=== PATIENT | male | born 1990 | race Caucasian/White ===

== ENCOUNTER 2016-10-21 17:09 | Emergency (ER) | payer OTHER ==
[~2016-10-21] VITALS: Ht 185.4 cm; Wt 111.7 kg
[2016-10-21 17:09] VITALS: BP 156/80
[2016-10-21] MEDS ORDERED: LIDOCAINE 2% MDV 20 ML VIAL SC ONE (18:00)
[2016-10-21] MEDS ORDERED: ADACEL/BOOSTRIX VACCINE (DIPHTH/PERTUSS/ACELL/TETANUS)0.5ML SYR (90715) IM ONE (18:00)
[2016-10-21] MEDS ORDERED: KEFL500C17 PO (18:17)
== END 2016-10-21 18:26 | disposition home or self-care (01) ==
LOC: M ED 17:53
DX: S61.412A Laceration without foreign body of left hand, initial encounter (principal); W45.8XXA Other foreign body or object entering through skin, initial encounter; Y92.019 Unspecified place in single-family (private) house as the place of occurrence of the external cause; Y93.G1 Activity, food preparation and clean up; Y99.8 Other external cause status; Z88.1 Allergy status to other antibiotic agents; Z88.8 Allergy status to other drugs, medicaments and biological substances

== ENCOUNTER 2016-10-28 09:53 | Emergency (ER) | payer OTHER ==
[~2016-10-28] VITALS: Ht 185.4 cm; Wt 110.7 kg
[2016-10-28 09:53] VITALS: BP 149/66
[~2016-10-28 09:53] MED LIST: KEFL500C17 PO
== END 2016-10-28 10:28 | disposition home or self-care (01) ==
LOC: M ED 10:25
DX: Z48.02 Encounter for removal of sutures (principal); Z88.0 Allergy status to penicillin

== ENCOUNTER 2017-10-26 14:23 | Emergency (ER) | payer OTHER, BC | END 2017-10-26 15:22 | disposition home or self-care (01) | LOC: M ED 14:23 | DX: S90.32XA Contusion of left foot, initial encounter (principal); W23.0XXA Caught, crushed, jammed, or pinched between moving objects, initial encounter; Y92.9 Unspecified place or not applicable; Y93.9 Activity, unspecified; Y99.0 Civilian activity done for income or pay; M77.52 Other enthesopathy of left foot and ankle; Z88.0 Allergy status to penicillin | CPT/HCPCS: 73630 ==

== ENCOUNTER → 2019-07-07 | Outpatient (REF) | payer OTHER ==
[~2019-07-07] MED LIST changes: +HYDR-3715 PO
== END ==
LOC: M LAB REF 19:53
PROVIDERS: ATTEND Physician Assistant
DX: J02.9 Acute pharyngitis, unspecified (principal)

== ENCOUNTER → 2019-07-10 | Outpatient (CLI) | payer OTHER ==
--- NOTE | 2019-07-10 11:02 | REP ---
CHEST, TWO VIEWS: There is no evidence of acute infiltrate. No pleural effusion is seen. The heart is normal in size. The mediastinal silhouette is unremarkable. The visualized osseous structures are intact. IMPRESSION: No acute pulmonary disease. Electronically Signed by Fran Campoverde MD 07/10/2019 07:45 P
== END ==
LOC: M WUC 09:05
PROVIDERS: ATTEND Physician Assistant
DX: R05 Cough (principal); J11.1 Influenza due to unidentified influenza virus with other respiratory manifestations

== ENCOUNTER 2020-06-30 10:26 | Emergency (ER) | payer OTHER ==
[~2020-06-30] VITALS: Ht 185.4 cm; Wt 128.6 kg
--- OUTSIDE RECORDS SUMMARY | 2020-06-30 10:32 | CCD | Continuity of Care Document ---
Author Author Yeyo BACH Organization Unknown Address [address] [place] [address] [place] [address] Phone [phone] Care Team Providers Care Blood Bank Manager Name Role Phone Will Co Publi AUTM [phone] Problems Description No Information Available Social History Type Date Description Comments Sex Unknown ETOH Use Occasionally consumes alcohol Tobacco Use Start: Unknown The patient has never vaped Tobacco Use Start: Unknown Patient has never smoked Smoking Status Reviewed: 05/11/20 Patient has never smoked Allergies, Adverse Reactions, Alerts Active Allergies Reaction Severity Comments Date Augmentin 07/07/2019 Medications Description No Active Medications Immunizations Description No Information Available Vital Signs Date Vital Result Comment 05/11/2020 11:36am BP Systolic 162 mmHg BP Diastolic 72 mmHg Heart Rate 104 /min O2 % BldC Oximetry 96 % Body Temperature 99.3 F Weight 270.00 lb Pain Level 7 07/10/2019 8:40am BP Systolic 144 mmHg BP Diastolic 84 mmHg Heart Rate 115 /min Respiratory Rate 18 /min O2 % BldC Oximetry 98 % Body Temperature 98.9 F Weight 270.00 lb Height 73 inches 6'1" BMI (Body Mass Index) 35.6 kg/m2 Pain Level 7 Results Description No Information Available Procedures Description No Information Available Medical Devices Description No Information Available Encounters Type Date Location Provider Dx Diagnosis Office Visit 05/11/2020 11:30a Main Office JOSE FRANCISCO Kasper J06 .9 Acute upper respiratory infection, unspecified Z20.828 Contact w and exposure to ot h viral communicable diseases Assessments Date Code Description Provider 05/11/2020 J06.9 Acute upper respiratory infectio n, unspecified JOSE FRANCISCO Kasper 05/11/2020 Z20.828 Contact with and (cadena spected) exposure to other viral communicable diseases JOSE FRANCISCO Kasper Plan of Treatment No Information Available Functional Status Description No Information Available Mental Status Description No Information Available Referrals Description No Information Available
--- OUTSIDE RECORDS SUMMARY | 2020-06-30 10:32 | CCD | Continuity of Care Document ---
Author Author Yeyo BACH Organization Unknown Address [address] [place] [address] [place] [address] Phone [phone] Care Team Providers Care Agronomy Technician Name Role Phone Will Co Publi AUTM [phone] Problems Description No Information Available Social History [...]
--- OUTSIDE RECORDS SUMMARY | 2020-06-30 10:32 | CCD | Continuity of Care Document ---
Author Author Yeyo QUEEN Organization Unknown Address [address] [place] [address] [place] [address] Phone [phone] Care Team Providers Care Damage Adjuster Name Role Phone Will Co Publi AUTM [phone] Problems Description No Information Available Social History Type Date Description Comments Sex Unknown ETOH Use Occasionally consumes alcohol Tobacco Use Start: Unknown The patient has never vaped Tobacco Use Start: Unknown Patient has never smoked Smoking Status Reviewed: 06/17/20 Patient has never smoked Allergies, Adverse Reactions, Alerts Active Allergies Reaction Severity Comments Date Augmentin 07/07/2019 Medications Description No Active Medications Immunizations Description No Information Available Vital Signs Date Vital Result Comment 06/17/2020 11:08am BP Systolic 138 mmHg BP Diastolic 88 mmHg Heart Rate 76 /min Respiratory Rate 20 /min O2 % BldC Oximetry 98 % Body Temperature 98.2 F Weight 270.00 lb Height 73 inches 6'1" BMI (Body Mass Index) 35.6 kg/m2 Pain Level 8 05/11/2020 11:36am BP Systolic 162 mmHg BP Diastolic 72 mmHg Heart Rate 104 /min O2 % BldC Oximetry 96 % Body Temperature 99.3 F Weight 270.00 lb Pain Level 7 Results Description No Information Available Procedures Description No Information Available Medical Devices Description No Information Available Encounters Type Date Location Provider Dx Diagnosis Office Visit 06/17/2020 11:00a Main Office JOSE FRANCISCO Kramer J06.9 Acute upper respiratory infection, unspecified Z20.828 Contact w and exposure to ot h viral communicable diseases Office Visit 05/11/2020 11:30a Main Office JOSE FRANCISCO Kasper J06 .9 Acute upper respiratory infection, unspecified Z20.828 Contact w and exposure to ot h viral communicable diseases Assessments Date Code Description Provider 06/17/2020 J06.9 Acute upper respiratory infectio n, unspecified JOSE FRANCISCO Kramer 06/17/2020 Z20.828 Contact with and (cadena spected) exposure to other viral communicable diseases JOSE FRANCISCO Kramer 05/11/2020 J06.9 Acute upper respiratory infectio n, unspecified JOSE FRANCISCO Kasper 05/11/2020 Z20.828 Contact with and (cadena spected) exposure to other viral communicable diseases JOSE FRANCISCO Kasper Plan of Treatment No Information Available Functional Status Description No Information Available Mental Status Description No Information Available Referrals Description No Information Available
--- OUTSIDE RECORDS SUMMARY | 2020-06-30 10:32 | CCD | Continuity of Care Document ---
Author Author Yeyo QUEEN Organization Unknown Address [address] [place] [address] [place] [address] Phone [phone] Care Team Providers Care Youth Advocate Name Role Phone Will Co Publi AUTM [phone] Problems Description No Information Available Social History [...]
--- OUTSIDE RECORDS SUMMARY | 2020-06-30 10:33 | CCD ---
Author Author [facility] Organization [facility] Address Unknown Phone Unavailable Care Team Providers Care Upper Cutter Out Name Role Phone ANTONIOJUDI GRIFFITH PA Unavailable Unavailable ANTONIO, JUDI PA Unavailable Unavailable ANTONIO, JUDI PA Unavailable Unavailable ANTONIO, JUDI PA Unavailable Unavailable ATNONIO, JUDI PA Unavailable Unavailable ANTONIO, JUDI PA Unavailable Unavailable ANTONIO, JUDI PA Unavailable Unavailable ANTONIO, JUDI PA Unavailable Unavailable ANTONIO, JUDI PA Unavailable Unavailable ANTONIO, JUDI PA Unavailable Unavailable ANTONIO, JUDI PA Unavailable Unavailable ANTONIO, JUDI PA Unavailable Unavailable ANTONIO, JUDI PA Unavailable Unavailable ANTONIO, JUDI PA Unavailable Unavailable ANTONIO, JUDI PA Unavailable Unavailable ANTONIO, JUDI PA Unavailable Unavailable ANTONIO, JUDI PA Unavailable Unavailable ANTONIO, JUDI PA Unavailable Unavailable ANTONIO, JUDI PA Unavailable Unavailable ANTONIO, JUDI PA Unavailable Unavailable ANTONIO, JUDI PA Unavailable Unavailable ANTONIO, JUDI PA Unavailable Unavailable ANTONIO, JUDI PA Unavailable Unavailable ANTONIO, JUDI PA Unavailable Unavailable ANTONIO, JUDI PA Unavailable Unavailable ANTONIO, JUDI PA Unavailable Unavailable ANTONIO, JUDI PA Unavailable Unavailable ANTONIO, JUDI PA Unavailable Unavailable ANTONIO, JUDI PA Unavailable Unavailable ANTONIO, JUDI PA Unavailable Unavailable ANTONIO, JUDI PA Unavailable Unavailable ANTONIO, JUDI PA Unavailable Unavailable ANTONIO, JUDI PA Unavailable Unavailable ANTONIO, JUDI PA Unavailable Unavailable ANTONIO, JUDI PA Unavailable Unavailable ANTONIO, JUDI PA Unavailable Unavailable ANTONIO, JUDI PA Unavailable Unavailable ANTONIO, JUDI PA Unavailable Unavailable ANTONIO, JUDI PA Unavailable Unavailable RING, K YOLI PA Unavailable Unavailable RING, K YOLI PA Unavailable Unavailable RING, K YOLI PA Unavailable Unavailable RING, K YOLI PA Unavailable Unavailable RING, K YOLI PA Unavailable Unavailable RING, K YOLI PA Unavailable Unavailable RING, K YOLI PA Unavailable Unavailable RING, K YOLI PA Unavailable Unavailable RING, K YOLI PA Unavailable Unavailable RING, K YOLI PA Unavailable Unavailable RING, K YOLI PA Unavailable Unavailable RING, K YOLI PA Unavailable Unavailable RING, K YOLI PA Unavailable Unavailable RING, K YOLI PA Unavailable Unavailable RING, K YOLI PA Unavailable Unavailable RING, K YOLI PA Unavailable Unavailable RING, K YOLI PA Unavailable Unavailable RING, K YOLI PA Unavailable Unavailable RING, K YOLI PA Unavailable Unavailable RING, K YOLI PA Unavailable Unavailable RING, K YOLI PA Unavailable Unavailable LETTIERE, A JEB PA Unavailable Unavailable LETTIERE, A JEB PA Unavailable Unavailable LETTIERE, A JEB PA Unavailable Unavailable LETTIERE, A JEB PA Unavailable Unavailable LETTIERE, A JEB PA Unavailable Unavailable LETTIERE, A JEB PA Unavailable Unavailable LETTIERE, A JEB PA Unavailable Unavailable LETTIERE, A JEB PA Unavailable Unavailable LETTIERE, A JEB PA Unavailable Unavailable LETTIERE, A JEB PA Unavailable Unavailable LETTIERE, A JEB PA Unavailable Unavailable LETTIERE, A JEB PA Unavailable Unavailable LETTIERE, A JEB PA Unavailable Unavailable LETTIERE, A JEB PA Unavailable Unavailable LETTIERE, A JEB PA Unavailable Unavailable LETTIERE, A JEB PA Unavailable Unavailable LETTIERE, A JEB PA Unavailable Unavailable LETTIERE, A JEB PA Unavailable Unavailable LETTIERE, A JEB PA Unavailable Unavailable LETTIERE, A JEB PA Unavailable Unavailable LETTIERE, A JEB PA Unavailable Unavailable LETTIERE, A JEB PA Unavailable Unavailable LETTIERE, A JEB PA Unavailable Unavailable LETTIERE, A JEB PA Unavailable Unavailable LETTIERE, A JEB PA Unavailable Unavailable LETTIERE, A JEB PA Unavailable Unavailable LETTIERE, A JEB PA Unavailable Unavailable LETTIERE, A JEB PA Unavailable Unavailable LETTIERE, A JEB PA Unavailable Unavailable Re-disclosure Warning The records that you are about to access may contain information from federally-assisted alcohol or drug abuse programs. If such information is present, then the following federally mandated warning applies: This information has been disclosed to you from records protected by federal confidentiality rules (42 CFR part 2). The federal rules prohibit you from making any further disclosure of this information unless further disclosure is expressly permitted by the written consent of the person to whom it pertains or as otherwise permitted by 42 CFR part 2. A general authorization for the release of medical or other information is NOT sufficient for this purpose. The Federal rules restrict any use of the information to criminally investigate or prosecute any alcohol or drug abuse patient.The records that you are about to access may contain highly sensitive health information, the redisclosure of which is protected by Article 27-F of the [facility] Public Health law. If you continue you may have access to information: Regarding HIV / AIDS; Provided by facilities licensed or operated by the [facility] Office of Mental Health; or Provided by the [facility] Office for People With Developmental Disabilities. If such information is present, then the following [facility] mandated warning applies: This information has been disclosed to you from confidential records which are protected by state law. State law prohibits you from making any further disclosure of this information without the specific written consent of the person to whom it pertains, or as otherwise permitted by law. Any unauthorized further disclosure in violation of state law may result in a fine or care home sentence or both. A general authorization for the release of medical or other information is NOT sufficient authorization for further disc losure. Encounters Encounter Providers Location Date Indications Data Source(s ) Outpatient Attender: YOLI Sandoval Primary 06/17/2020 10:00:00 AM EST [facility] ([facility], [facility]) Outpatient Attender: JEB Sandoval Prim vikki 05/11/2020 10:30:00 AM EST [facility] ([facility], [facility]) Outpatient 07/14/2019 01:20:00 PM EDT [facility] Outpatient Attender: JUDI Felipe ry 07/10/2019 07:15:00 AM EST [facility] ([facility], [facility]) Outpatient Attender: JUDI Felipe ry 07/07/2019 03:10:00 PM EST [facility] ([facility], [facility]) Insurance Providers Payer name Policy type / Coverage type Policy ID Covered green party ID Covered green party's relationship to triana Policy Tri[place] Plan Information REPLACED BY [facility] [id number] SP [id number] [facility]) O [id number] S [id number] [employer] O [id number] O 1 [id number] [employer] B [id number] S YNS [id number] [employer] [id number] SP [id number] [employer] [place] PPO 302/307 [id number] SP [id number] OTHER W.C.EMPLOYER O [id number] O [id number] [facility] [id number] SP [id number] [employer] [place] PPO 302/307 [id number] SP [id number] [facility] [facility] [place] [id number] MO2 [id number] [employer] [facility] [id number] MO2 [id number] [facility] [id number] MO2 [id number] Results ID Date Data Source [id number] 06/17/2020 12:00:00 AM EST [facility] Name Value Range Interpretation Code Description Data Candis rce(s) Supporting Document(s) SARS-CoV2 Rapid Antigen Negative [facility] This lab was reported by [facility]. ID Date Data Source [id number] 05/11/2020 12:00:00 AM EST [facility] Name Value Range Interpretation Code Description Data Candis rce(s) Supporting Document(s) SARS coronavirus 2 Ag Negative [facility] This lab was ordered by [facility] and reported by [facility]. ID Date Data Source [id number] 07/07/2019 04:48:00 PM EST [facility] ([facility]) Name Value Range Interpretation Code Description Data Candis rce(s) Supporting Document(s) Group A Strep Culture FULL REPORT IN L <SEE NOTE> [facility] ([facility], [facility]) FULL REPORT IN LAB NOTES ([facility] and [facility] ). NEGATIVE FOR STREP PYOGENES (GROUP A) Procedure Social History Code Duration Value Status Description Data Source(s ) Smoking 06/17/2020 12:00:00 AM EST Patient has never smoked co mpleted Patient has never smoked [facility] ([facility]) Vital Signs ID Date Data Source UNK Name Value Range Interpretation Code Description Data Source(s) Body mass index (BMI) [Ratio] 35.6 kg/m2 35.6 k g/m2 [facility] ([facility], [facility]) Body height 73 [in_i] 73 [in_i] [facility] ([facility]) 6'1" Body weight 270.00 [lb_av] 270.00 [lb_av] [facility] ([facility]) Body temperature 98.2 [degF] 98.2 [degF] [facility] ([facility]) Oxygen saturation in Arterial blood by Pulse oximetry 98 % 98 % [facility] ([facility]) Respiratory rate 20 /min 20 /min [facility] ( [facility]) Heart rate 76 /min 76 /min [facility] ([facility]) Diastolic blood pressure 88 mm[Hg] 88 mm[Hg] [facility] ([facility]) Systolic blood pressure 138 mm[Hg] 138 mm[Hg] [facility] ([facility]) Body weight 270.00 [lb_av] 270.00 [lb_av] [facility] ([facility]) Body temperature 99.3 [degF] 99.3 [degF] [facility] ([facility]) Oxygen saturation in Arterial blood by Pulse oximetry 96 % 96 % [facility] ([facility]) Heart rate 104 /min 104 /min [facility] ([facility], [facility]) Diastolic blood pressure 72 mm[Hg] 72 mm[Hg] [facility] ([facility]) Systolic blood pressure 162 mm[Hg] 162 mm[Hg] [facility], [facility]) Body mass index (BMI) [Ratio] 35.6 kg/m2 35.6 k g/m2 [facility] ([facility], [facility]) Body height 73 [in_i] 73 [in_i] [facility] ([facility], [facility]) 6'1" Body weight 270.00 [lb_av] 270.00 [lb_av] [facility] ([facility], [facility]) Body temperature 98.9 [degF] 98.9 [degF] [facility] ([facility], [facility]) Oxygen saturation in Arterial blood by Pulse oximetry 98 % 98 % [facility] ([facility], [facility]) Respiratory rate 18 /min 18 /min [facility] ( [facility]) Heart rate 115 /min 115 /min [facility] ([facility], [facility]) Diastolic blood pressure 84 mm[Hg] 84 mm[Hg] [facility] ([facility], [facility]) Systolic blood pressure 144 mm[Hg] 144 mm[Hg] [facility] ([facility], [facility]) Body mass index (BMI) [Ratio] 35.6 kg/m2 35.6 k g/m2 [facility] ([facility], [facility]) Body height 73 [in_i] 73 [in_i] [facility] ([facility], [facility]) 6'1" Body weight 270.00 [lb_av] 270.00 [lb_av] [facility] ([facility], [facility]) Body temperature 100.5 [degF] 100.5 [degF] [facility] ([facility], [facility]) Oxygen saturation in Arterial blood by Pulse oximetry 98 % 98 % [facility] ([facility], [facility]) Respiratory rate 18 /min 18 /min [facility] ( [facility], [facility]) Heart rate 119 /min 119 /min [facility] ([facility], [facility]) Diastolic blood pressure 81 mm[Hg] 81 mm[Hg] [facility] ([facility], [facility]) Systolic blood pressure 149 mm[Hg] 149 mm[Hg] [facility], [facility])
--- NOTE | 2020-06-30 11:42 | REP ---
INDICATION: injury, pain COMPARISON: None. TECHNIQUE: Three views right shoulder. FINDINGS: There is no evidence of acute fracture, dislocation, or intrinsic bone disease. IMPRESSION: No fracture or dislocation. <Electronically signed by Fran Campoverde > 06/30/20 [id number]
--- OUTSIDE RECORDS SUMMARY | 2020-06-30 11:42 | CCD ---
Author Author [facility] Organization [facility] Address Unknown Phone Unavailable Care Team Providers Care Technician Support Engineer Name Role Phone ANTONIOJUDI GRIFFITH PA Unavailable [...] Unavailable ANTONIO, JUDI PA Unavailable Unavailable ANTONIO, JDUI PA Unavailable Unavailable ANTONIO, JUDI PA Unavailable [...] is protected by Article 27-F of the [facility] Public Health law. If you continue you may have access to information: Regarding HIV / AIDS; Provided by facilities licensed or operated by the [facility] Office of Mental Health; or Provided by the [facility] Office for People With Developmental Disabilities. If such information is present, then the following [facility] mandated warning applies: This information has [...] law may result in a fine or fci sentence or both. A general authorization for the release of medical or other information is NOT sufficient authorization for further disc losure. Encounters Encounter Providers Location Date Indications Data Source(s ) Outpatient Attender: YOLI Sandoval Primary 06/17/2020 10:00:00 AM EST [facility] ([facility], [facility]) Outpatient Attender: JEB Sandoval Prim vikki 05/11/2020 10:30:00 AM EST [facility] ([facility], [facility]) Outpatient 07/14/2019 01:20:00 PM EDT [facility] Outpatient Attender: JUDI Felipe ry 07/10/2019 07:15:00 AM EST [facility] ([facility] Outpatient Attender: JUDI Sandoval Prima ry 07/07/2019 03:10:00 PM EST [facility] ([facility], [facility]) Insurance Providers Payer name Policy type / Coverage type Policy ID Covered alliance party ID Covered alliance party's relationship to triana Policy Triana Plan Information [employer] M[employer]O [id number] SP [id number] [facility] INSURANCE [facility] [id number] SP [id number] [employer] M[employer]O [id number] SP [id number] [facility]) O [id number] S [id number] [employer] O [id number] O 1 [id number] [employer] B [id number] S YNS [id number] [employer] [id number] SP 1 [id number] [place] [place]/307 [id number] SP [id number] OTHER W.[employer]EMPLOYER O [id number] O [id number] [employer] [place] PPO 302/307 [id number] SP [id number] [employer] [place] [id number] MO2 [id number] [employer] [place] [id number] MO2 [id number] [facility] [id number] MO2 [id number] Results ID Date Data Source [id number] 06/17/2020 12:00:00 AM EST [facility] Name Value Range Interpretation Code Description Data Candis rce(s) Supporting Document(s) SARS-CoV2 Rapid Antigen Negative [facility] This lab was reported by [facility]. ID Date Data Source [id number] 05/11/2020 12:00:00 AM EST [facility] Name Value Range Interpretation Code Description Data Candis rce(s) Supporting Document(s) SARS coronavirus 2 Ag Negative [facility] This lab was ordered by [facility] and reported by [facility]. ID Date Data Source [id number] 07/07/2019 04:48:00 PM EST [facility] ([facility]) Name Value Range Interpretation Code Description Data Candis rce(s) Supporting Document(s) Group A Strep Culture [facility] NOTE[facility], [facility]) FULL REPORT IN LAB NOTES ([facility] NEGATIVE FOR STREP PYOGENES (GROUP A) Procedure Social History Code Duration Value Status Description Data Source(s ) Smoking 06/17/2020 12:00:00 AM EST Patient has never smoked co mpleted Patient has never smoked [facility] ([facility]) Vital Signs ID Date Data Source UNK Name Value Range Interpretation Code Description Data Source(s) Body mass index (BMI) [Ratio] 35.6 kg/m2 35.6 k g/m2 [facility] Body height 73 [in_i] 73 [in_i] [facility]) 6'1" Body weight 270.00 [lb_av] 270.00 [lb_av] [facility] ([facility]) Body temperature 98.2 [degF] 98.2 [degF] [facility]) Oxygen saturation in Arterial blood by Pulse oximetry 98 % 98 % [facility]) Respiratory rate 20 /min 20 /min [facility] ( [facility]) Heart rate 76 /min 76 /min [facility] Diastolic blood pressure 88 mm[Hg] 88 mm[Hg] [facility]) Systolic blood pressure 138 mm[Hg] 138 mm[Hg] [facility] Body weight 270.00 [lb_av] 270.00 [lb_av] [facility] ([facility]) Body temperature 99.3 [degF] 99.3 [degF] [facility]) Oxygen saturation in Arterial blood by Pulse oximetry 96 % 96 % [facility]) Heart rate 104 /min 104 /min [facility]) Diastolic blood pressure 72 mm[Hg] 72 mm[Hg] [facility] ([facility], [facility]) Systolic blood pressure 162 mm[Hg] 162 mm[Hg] M [facility] ([facility], [facility]) Body mass index (BMI) [Ratio] 35.6 kg/m2 35.6 k g/m2 [facility] ([facility], [facility]) Body height 73 [in_i] 73 [in_i] [facility], [facility]) 6'1" Body weight 270.00 [lb_av] 270.00 [lb_av] [facility] ([facility], [facility]) Body temperature 98.9 [degF] 98.9 [degF] [facility] ([facility], [facility]) Oxygen saturation in Arterial blood by Pulse oximetry 98 % 98 % [facility] ([facility], [facility]) Respiratory rate 18 /min 18 /min [facility] ( [facility], [facility]) Heart rate 115 /min 115 /min [facility] ([facility], [facility]) Diastolic blood pressure 84 mm[Hg] 84 mm[Hg] [facility] ([facility], [facility]) Systolic blood pressure 144 mm[Hg] 144 mm[Hg] [facility], [facility]) Body mass index (BMI) [Ratio] 35.6 kg/m2 35.6 k g/m2 [facility] ([facility], [facility]) Body height 73 [in_i] 73 [in_i] [facility], [facility]) 6'1" Body weight 270.00 [lb_av] 270.00 [lb_av] [facility] T ([facility], [facility]) Body temperature 100.5 [degF] 100.5 [degF] MED[facility] NT ([facility], [facility]) Oxygen saturation in Arterial blood by Pulse oximetry 98 % 98 % [facility] ([facility], [facility]) Respiratory rate 18 /min 18 /min [facility] ( [facility], [facility]) Heart rate 119 /min 119 /min [facility] ([facility], [facility]) Diastolic blood pressure 81 mm[Hg] 81 mm[Hg] [facility] ([facility], [facility]) Systolic blood pressure 149 mm[Hg] 149 mm[Hg] M CEE ([facility], [facility])
[2020-06-30] MEDS ORDERED: NAPR-837 PO (12:21)
[2020-06-30] MEDS ORDERED: CYCL5TAB PO (12:21)
[2020-06-30 12:30] VITALS: BP 141/69
== END 2020-06-30 12:37 | disposition home or self-care (01) ==
LOC: M ED 10:26
DX: S49.91XA Unspecified injury of right shoulder and upper arm, initial encounter (principal); W22.8XXA Striking against or struck by other objects, initial encounter; Y92.9 Unspecified place or not applicable; Y93.9 Activity, unspecified; Y99.0 Civilian activity done for income or pay; Z88.1 Allergy status to other antibiotic agents

== ENCOUNTER → 2020-09-16 | Outpatient (CLI) | payer OTHER ==
[~2020-09-16] MED LIST changes: +CYCL5TAB PO; +ISOVUE-300 61% 50ML VIAL As Ordered ONE; +NAPR-837 PO; +PROHANCE 279.3MG/ML 5ML VIAL As Ordered ONE
--- NOTE | 2020-09-16 10:26 | REP ---
INDICATION: CONTUSION OF RIGHT SHOULDER. COMPARISON: Radiographs 06/30/2020. TECHNIQUE: Coronal oblique T1, T2 fat sat, sagittal oblique T2 fat sat, axial T2 fat sat, gradient echo. Post arthrogram T1 fat sat and T2 fat sat in multiple planes. FINDINGS: Rotator cuff: There is moderate tendinopathy/tendinitis of the supraspinatus tendon, with a partial undersurface tear of the tendon. No full-thickness tear is seen. Acromioclavicular joint: There are mild hypertrophic degenerative changes of the acromioclavicular joint. Acromion: Type 2 Biceps Tendon: In bicipital groove, no tenosynovitis. Hill Sach's deformity: None. Deltoid muscle: No abnormal signal. Biceps labral complex: There is fraying of the biceps labral complex. Labrum: There is diffuse tear of the posterior labrum. There are multiple subcentimeter paralabral cysts along the posterior labrum. A prominent lobulated paralabral cyst posteriorly extends below level of the glenohumeral joint, measuring about 14 x 7 mm. Cartilage: There is mild thinning of the posterior glenoid cartilage. Bone marrow: No abnormal signal. Joint fluid: No effusion. There is a very small amount of fluid in the subacromial/subdeltoid bursae. IMPRESSION: Moderate tendinopathy/tendinitis of the supraspinatus tendon with a partial undersurface tear. Mild hypertrophic degenerative changes of the acromioclavicular joint, with a type 2 acromion. There is fraying of the biceps labral complex. There is diffuse complex tear of the posterior labrum with multiple adjacent subcentimeter paralabral cysts. A larger paralabral cyst is seen along the inferior aspect of the posterior labrum, extending below the level of the glenohumeral joint, measuring 14 x 7 mm. <Electronically signed by Fran Campoverde > 09/16/20 [id number]
--- NOTE | 2020-09-17 17:28 | REP ---
INDICATION: CONTUSION OF RIGHT SHOULDER COMPARISON: None. TECHNIQUE: The procedure was performed under the direct supervision of Dr. Campoverde. The benefits and risks including but not limited to pain, infection, bleeding and anaphylaxis were explained to the patient and informed consent was obtained. The right glenohumeral joint space was localized using fluoroscopic guidance. The skin was prepped and draped in a sterile fashion. 1% lidocaine was used as a local anesthetic. Using fluoroscopic guidance a 22 gauge spinal needle was inserted and advanced into the joint. 0.5 ml of Isovue-300 was injected to verify placement. 11 ml of a solution containing 20 ml of sterile saline and 0.15 ml of ProHance was injected into the joint. The needle was removed and the patient was taken to MRI for postprocedural imaging. The patient tolerated the procedure well and there were no immediate complications. Less than 6 seconds of fluoro time was utilized for this procedure. FINDINGS: None IMPRESSION: Fluoro guidance for right shoulder MRI arthrogram injection. <Electronically signed by Pool Black > 09/16/20 [id number] <Electronically signed by Fran Campoverde > 09/17/20 [id number]
== END ==
LOC: M RADPRO 05:58
PROVIDERS: ATTEND Physician Assistant
DX: S43.431D Superior glenoid labrum lesion of right shoulder, subsequent encounter (principal); M75.91 Shoulder lesion, unspecified, right shoulder
CPT/HCPCS: 23350; 73223; 77002; A9576; Q9967

== ENCOUNTER 2021-01-21 11:06 | Observation (INO) | payer OTHER ==
[~2021-01-21] VITALS: Ht 185.4 cm; Wt 132.0 kg
[~2021-01-21 11:06] MED LIST changes: -ISOVUE-300 61% 50ML VIAL As Ordered ONE; -PROHANCE 279.3MG/ML 5ML VIAL As Ordered ONE
[2021-01-21] MEDS ORDERED: diphenhydrAMINE 50MG/ML VIAL (J1200) As Ordered ONE (11:34)
[2021-01-21] MEDS ORDERED: FAMOTIDINE/NS 20 MG/50 ML BAG (S0028) As Ordered ONE (11:35)
[2021-01-21] MEDS ORDERED: methylPREDNISolone 125MG 2ML VIAL As Ordered ONE (11:35)
[2021-01-21] MEDS ORDERED: OXYMETAZOLINE 0.05% NASAL SPRAY (AFRIN) ONE (12:40)
[2021-01-21] MEDS ORDERED: OXYMETAZOLINE 0.05% NASAL SPRAY (AFRIN) As Ordered ONE ×2 (12:40→13:12)
[2021-01-21] MEDS ORDERED: NS 1,000 ML IV ONE (12:55)
[2021-01-21] MEDS ORDERED: METHYLENE BLUE 0.5% (5MG/ML) 10 ML AMP (PROVAYBLUE) As Ordered ONE (13:11)
[2021-01-21] MEDS ORDERED: LIDOCAINE W/EPINEPHRINE 1% 20ML VIAL As Ordered ONE (13:11)
[2021-01-21 13:21] LABS: BASO # 0.1 10^3/uL (0.0-0.2); BASO % 0.8 % (0.0-1.0); EOS % 0.1 % (0.0-3.0); HEMATOCRIT 48.2 % (42.0-52.0); HEMOGLOBIN 16.6 g/dl (13.5-17.5); LYMPH # 1.4 10^3/uL (1.5-5.0); LYMPH % 17.5 % (24.0-44.0); MEAN CORPUSCULAR HEMOGLOBIN 29.5 pg (27.0-33.0); MEAN CORPUSCULAR HGB CONC 34.4 g/dl (32.0-36.5); MEAN CORPUSCULAR VOLUME 85.8 fl (80.0-96.0); MONO # 0.3 10^3/uL (0.0-0.8); MONO % 3.3 % (2.0-8.0); NEUTROPHILS # 6.4 10^3/uL (1.5-8.5); NEUTROPHILS % 77.9 % (36.0-66.0); PLATELET COUNT, AUTOMATED 198 10^3/uL (150-450); RED BLOOD COUNT 5.62 10^6/uL (4.30-6.10); WHITE BLOOD COUNT 8.3 10^3/uL (4.0-10.0)
[2021-01-21 13:44] LABS: BLOOD UREA NITROGEN 9 MG/DL (7-18); CALCIUM LEVEL 9.4 MG/DL (8.5-10.1); CARBON DIOXIDE LEVEL 25 MEQ/L (21-32); CHLORIDE LEVEL 104 MEQ/L (98-107); CREATININE FOR GFR 1.05 MG/DL (0.70-1.30); GLOMERULAR FILTRATION RATE > 60.0 (>60); GLUCOSE, FASTING 108 MG/DL (70-100); POTASSIUM SERUM 3.7 MEQ/L (3.5-5.1); RSV AMPLIFICATION NEGATIVE (NEGATIVE); SODIUM LEVEL 140 MEQ/L (136-145)
[2021-01-21] MEDS ORDERED: HOME MED LIST COMPLETE! XX SCH (13:50)
[2021-01-21] MEDS ORDERED: dexameTHASONE 4 MG/ML 1ML VIAL (J1100 PER 1MG) As Ordered ONE (15:27)
[2021-01-21] MEDS ORDERED: ROCURONIUM BROMIDE 50 MG/5 ML VIAL As Ordered ONE (15:27)
[2021-01-21] MEDS ORDERED: LIDOCAINE 2% 100MG/5ML SDV (FOR ANES.) As Ordered ONE (15:27)
[2021-01-21] MEDS ORDERED: fentaNYL 100 MCG/2 ML INJECTION (J3010) As Ordered ONE (15:27)
[2021-01-21] MEDS ORDERED: MIDAZOLAM INJ 2MG/2ML VIAL (J2250 PER 1MG) As Ordered ONE (15:27)
[2021-01-21] MEDS ORDERED: propofoL 200 MG/20 ML VIAL As Ordered ONE (15:27)
[2021-01-21] MEDS ORDERED: ONDANSETRON 4MG/2ML VIAL As Ordered ONE (15:27)
--- NOTE | 2021-01-21 15:55 | CR ---
CONSULTATION DATE: 01/21/2021 CHIEF COMPLAINT: Stung by a bee. HISTORY OF PRESENT ILLNESS: This 30-year-old man was drinking from a Mountain Dew at 8:00 this morning, when he felt severe pain in the left side of the throat. Patient tried to alleviate his symptoms with liquids without complete resolution of his symptoms. He took Benadryl after the incident. He decided to present to the emergency department for further evaluation. While in the emergency department patient received additional treatment, including Solu-Medrol and Benadryl as well. At this time patient continues to experience significant discomfort from the left lateral neck over the hyoid level. As such, I have been asked by the emergency department to evaluate the patient for further management and for possible extraction of the bee stinger remnant. MEDICAL HISTORY: Unremarkable. SURGICAL HISTORY: No head and neck surgeries. ALLERGIES: AUGMENTIN. REVIEW OF SYSTEMS: Noncontributory. PHYSICAL EXAMINATION: On examination, patient appears in no acute distress. No drooling. Patient able to phonate without significant difficulty. No stridor or wheezes noted at this time. EARS: Normal pinna. FACE: Normocephalic. Symmetrical facial motion. ORAL: No trismus. Moist oral cavity. Floor of mouth not elevated. Tongue fully mobile with symmetrical motion. Posterior pharyngeal pedraza show no evidence of gross lesion at the level of the oropharynx. NECK: Trachea midline. No palpable cervical lymphadenopathy. Somewhat tender on palpating the left upper neck. PROCEDURE: Flexible laryngoscopy. INDICATION: Left-sided throat pain. Patient was in the upright position on the stretcher. The nasal cavity was topicalized using the Afrin solution. The flexible scope was introduced into the nasal cavity. The mucosa of the nasal cavity, nasopharynx, oropharynx, hypopharynx, supraglottis, and glottis was examined. There was a linear horizontal laceration noted on the left lateral pharyngeal wall at the level of the tip of the epiglottis. Mild edema around that mucosal laceration site. Stinger could not be ascertained. IMPRESSION: This 30-year-old man has been stung by a bee about 8;00 this morning. Due to the location and the nature of the injury to the upper airway, management options, including direct suspension microlaryngoscopy with possible extraction of the bee stinger have been discussed with the patient. He understands and consents to the procedure. He is aware that he will need to be admitted to the hospital for overnight observation to ensure his safety of his airway and to watch out for secondary reaction for possible anaphylactic reaction. CLAIR
[2021-01-21] MEDS ORDERED: GLYCOPYRROLATE INJ 0.2 MG/ML 2 ML VIAL As Ordered ONE (16:38)
[2021-01-21] MEDS ORDERED: EPINEPHrine 1MG/ML INJ 30ML MD-VIAL As Ordered ONE (16:48)
[2021-01-21] MEDS ORDERED: SUGAMMADEX SODIUM 500 MG/5 ML VIAL (BRIDION) As Ordered ONE (16:53)
[2021-01-21] MEDS ORDERED: ACETAMINOPHEN 1000MG 100ML IV BTL (OFIRMEV) (J0131 PER 10MG) As Ordered ONE (16:53)
[2021-01-21] MEDS ORDERED: ONDANSETRON 4MG/2ML VIAL IV PRN (17:35)
[2021-01-21] MEDS ORDERED: LR 1,000 ML IV SCH (17:35)
[2021-01-21] MEDS ORDERED: oxyCODONE 5MG TAB PO PRN (17:35)
[2021-01-21] MEDS ORDERED: fentaNYL 100 MCG/2 ML INJECTION (J3010) IV PRN (17:35)
--- NOTE | 2021-01-21 17:55 | HPEPDOC ---
[facility] Medical History & Physical Date of Admission Jan 21, 2021 Date of Service: Jan 21, 2021 Attending Physician: DAVID BAZZI MD History and Physical CHIEF COMPLAINT: "I got stung by a bee in my throat" HISTORY OF PRESENT ILLNESS: Healthy 30 yo M with who presented to the ED after accidentally swallowing a bee when he went to take swig of his energy drink where the bee was also taking a drink. 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 In the ED, he is HDS, afebrile, breathing comfortably on room air, has no pain complaints at this time. ENT was consulted by the ED and recommended admission to medicine for observation overnight given location of his bee sting and will take him to OR scoping as they suspect that the stinger is still intact. PAST MEDICAL HISTORY: None PAST SURGICAL HISTORY: None SOCIAL HISTORY: Vapes No illicit drugs ALLERGIES: Please see below. REVIEW OF SYSTEMS: 10 point ROS was otherwise negative except as noted in the HPI HOME MEDICATIONS: Please see below. PHYSICAL EXAMINATION: VITAL SIGNS: see below GENERAL APPEARANCE: NAD HEENT: NCAT, EOMI, MMM, clear posterior oropharynx on visual examination CARDIOVASCULAR: RRR, no m/r/g LUNGS: CTAB, no wheezing, rhonchi, rales or stridor ABDOMEN: Normoactive bowel sound, soft, NTND EXTREMITIES: WWP, no LE edema NEUROLOGICAL: Clear speech, CN 3-12 intact, 5/5 strength throughout, grossly nonfocal examination PSYCHIATRIC: AOx3 LABORATORY DATA: See below. CBC and BMP wnl IMAGING: None MICROBIOLOGY: Please see below. ASSESSMENT: 30 yo M with who presented to the ED after accidentally swallowing a bee and had a bee sting to the L laryngeal wall who is being admitted for observation per ENT recommendation. L laryngeal wall bee sting: -continuous pulse ox -ENT consult placed -Plan was to take to OR for scoping to visualize if stinger was still attached DVT ppx: TEDs ad SCDs, ambulatory Dispo: Likely home in the AM Vital Signs Vital Signs Date Time Temp Pulse Resp B/P (MAP) Pulse Ox O2 Delivery O2 Flow Rate FiO2 01/21/21 12:22 97.8 86 18 153/76 (101) 99 Room Air Laboratory Data Labs 24H Laboratory Tests 2 01/21/21 13:01: Immature Granulocyte % (Auto) 0.4, Neutrophils (%) (Auto) 77.9H, Lymphocytes (%) (Auto) 17.5L, Monocytes (%) (Auto) 3.3, Eosinophils (%) (Auto) 0.1, Basophils (%) (Auto) 0.8, Neutrophils # (Auto) 6.4, Lymphocytes # (Auto) 1.4L, Monocytes # (Auto) 0.3, Eosinophils # (Auto) 0.0, Basophils # (Auto) 0.1, Nucleated Red Blood Cells % (auto) 0.0, Anion Gap 11, Glomerular Filtration Rate > 60.0, Calcium Level 9.4, Coronavirus (COVID-19)(PCR) NEGATIVE, Influenza Type A (RT- PCR) NEGATIVE, Influenza Type B (RT-PCR) NEGATIVE, Respiratory Syncytial Virus (PCR) NEGATIVE CBC/BMP Laboratory Tests 01/21/21 13:01 Home Medications No Active Prescriptions or Reported Meds Allergies Coded Allergies: amoxicillin (Verified Allergy, Unknown, UNKNOWN CHILDHOOD REACTION, 01/21/21) clavulanic acid (Verified Allergy, Unknown, UNKNOWN CHILDHOOD REACTION, 01/21/21) A-FIB/CHADSVASC A-FIB History Current/History of A-Fib/PAF?: No Current PO Anticoag Therapy: No Age/Risk Factor Scoring CHADSVASC: CHADSVASC Response (Comments) Value Age Risk Factor Age < 65 years old 0 Gender Risk Factor Male 0 Hx of CHF No 0 Hx of HTN No 0 Hx of Stroke/TIA/or VTE No 0 Hx of Diabetes No 0 Hx of Vascular Disease No 0 Total 0 Treatment Treatment ordered: NONE Reason Anticoagulant not given: Not indicated/Avloa3herr DAVID BAZZI MD Jan 21, 2021 17:55
[2021-01-21 19:50] VITALS: BP 166/102
[2021-01-21 20:20] VITALS: BP 166/101
[2021-01-21 21:20] VITALS: BP 128/66
[2021-01-21 22:20] VITALS: BP 127/67
[2021-01-21 23:20] VITALS: BP 125/66
[2021-01-22 00:20] VITALS: BP 127/66
[2021-01-22 02:51] VITALS: O2SAT 94
[2021-01-22 06:00] VITALS: BP 125/82
--- NOTE | 2021-01-22 07:41 | RO ---
OPERATIVE NOTE DATE OF OPERATION: 01/21/2021 PREOPERATIVE DIAGNOSIS: Bee sting, left lateral pharyngeal wall. POSTOPERATIVE DIAGNOSIS: Bee sting, left lateral pharyngeal wall. PROCEDURE PERFORMED: Direct suspension laryngoscopy with excisional biopsy of the left pharyngeal wall. SURGEON: Kirk Kern MD TRANSIT SURVEY WORKER: ANESTHESIA: General CLINICAL PREAMBLE: This 30-year-old man was drinking some Mountain Dew. He felt a bee had stung the left side of his throat. The discomfort was persistent. Flexible laryngoscopy revealed mildly erythematous focal site on the left lateral pharyngeal wall. Management options including surgery listed above have been discussed with the patient in attempts to extract any possible remnant of the bee stinger. He understood and consented to the procedure. OR NARRATION: The patient was identified in preholding and brought to the operating room in stable condition. In supine position on the operating table, the patient received general anesthesia followed by orotracheal intubation without incident. The patient was prepped and draped in the usual fashion for the procedure. The upper dentition was protected with the dental guard. The Dedo-Pilling laryngoscope was introduced into the oral cavity. Inspection of the mucosa of the oral tongue, base of tongue, lateral and posterior pharyngeal wall and supraglottis and glottis as well as the piriform sinuses was conducted. A focal area with a punctum was noted on the left lateral pharyngeal wall. The Dedo-Pilling laryngoscope was suspended to allow direct visualization of the area of interest. Using the biopsy forceps, the area with the punctum was successfully excised. Hemostasis was achieved by placing cottonoid pledgets soaked in 1:1000 epinephrine. At the end of the procedure, sponge and instrument counts were correct. No complications were encountered. Estimated blood loss was less than 5 mL. General anesthesia was reversed and the patient was extubated and brought to the recovery room in stable condition.
[2021-01-22 08:00] VITALS: O2SAT 96
[2021-01-22 08:37] LABS: HEMOGLOBIN 15.7 g/dl (13.5-17.5); MEAN CORPUSCULAR HEMOGLOBIN 29.3 pg (27.0-33.0); MEAN CORPUSCULAR HGB CONC 33.4 g/dl (32.0-36.5); MEAN CORPUSCULAR VOLUME 87.7 fl (80.0-96.0); PLATELET COUNT, AUTOMATED 205 10^3/uL (150-450); RED BLOOD COUNT 5.36 10^6/uL (4.30-6.10); WHITE BLOOD COUNT 11.5 10^3/uL (4.0-10.0)
[2021-01-22 09:00] VITALS: O2SAT 95
[2021-01-22 09:16] LABS: BLOOD UREA NITROGEN 13 MG/DL (7-18); CALCIUM LEVEL 9.3 MG/DL (8.5-10.1); CARBON DIOXIDE LEVEL 28 MEQ/L (21-32); CHLORIDE LEVEL 105 MEQ/L (98-107); CREATININE FOR GFR 1.02 MG/DL (0.70-1.30); GLOMERULAR FILTRATION RATE > 60.0 (>60); GLUCOSE, FASTING 92 MG/DL (70-100); POTASSIUM SERUM 4.5 MEQ/L (3.5-5.1); SODIUM LEVEL 140 MEQ/L (136-145)
--- NOTE | 2021-01-22 09:20 | DS.PDOC ---
Discharge Summary General Date of Admission Jan 21, 2021 at 13:49 Date of Discharge 01/22/2021 Attending Physician: DAVID BAZZI MD Discharge Summary PROCEDURES PERFORMED DURING STAY: Direct suspension laryngoscopy with excisional biopsy of the left pharyngeal wall by Dr. Kern on 01/21/2021 ADMITTING DIAGNOSES: Bee sting DISCHARGE DIAGNOSES: Laryngeal wall bee sting Obesity COMPLICATIONS/CHIEF COMPLAINT: Stung By A Bee. HISTORY OF PRESENT ILLNESS: Healthy 30 yo M with who presented to the ED after accidentally swallowing a bee when he went to take swig of his energy drink where the bee was also taking a drink. 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 HOSPITAL COURSE: In the ED, he was HDS, afebrile, breathing comfortably on room air, has no pain complaints at this time. ENT was consulted by the ED and recommended admission to medicine for observation overnight given location of his bee sting and will take him to OR scoping as they suspect that the stinger is still intact. He had direct suspension laryngoscopy with excisional biopsy of the left pharyngeal wall by Dr. Kern on 01/21/2021 without complications. He is now being discharged home with 7d course of clinda with ENT f/u within 7-10d. DISCHARGE MEDICATIONS: Please see below. ALLERGIES: Please see below. PHYSICAL EXAMINATION ON DISCHARGE: VITAL SIGNS: Please see below. GENERAL APPEARANCE: NAD HEENT: NCAT, EOMI, MMM, clear posterior oropharynx on visual examination CARDIOVASCULAR: RRR, no m/r/g LUNGS: CTAB, no wheezing, rhonchi, rales or stridor ABDOMEN: Normoactive bowel sound, soft, NTND EXTREMITIES: WWP, no LE edema NEUROLOGICAL: Clear speech, CN 3-12 intact, 5/5 strength throughout, grossly nonfocal examination PSYCHIATRIC: AOx3 LABORATORY DATA: Please see below. IMAGING: None PROGNOSIS: Excellent ACTIVITY: As tolerated DIET: Soft to regular as tolerated DISCHARGE PLAN: Home with 7d of clindamycin and ENT follow up within 7-10d, and PCP within 7d DISPOSITION: home DISCHARGE INSTRUCTIONS: Home with 7d of clindamycin and ENT follow up within 7-10d, and PCP within 7d ITEMS TO FOLLOWUP ON ON OUTPATIENT: Laryngeal bee sting DISCHARGE CONDITION: Stable TIME SPENT ON DISCHARGE: 32 minutes. Vital Signs/I&Os Vital Signs Date Time Temp Pulse Resp B/P (MAP) Pulse Ox O2 Delivery O2 Flow Rate FiO2 01/22/21 06:00 98.0 85 19 125/82 (96) 95 Room Air 01/21/21 17:21 2.0 I&O- Last 24 Hours up to 6 AM 01/22/21 06:00 Intake Total 2340 ml Balance 2340 ml Laboratory Data Labs 24H Laboratory Tests 2 01/21/21 13:01: Immature Granulocyte % (Auto) 0.4, Neutrophils (%) (Auto) 77.9H, Lymphocytes (%) (Auto) 17.5L, Monocytes (%) (Auto) 3.3, Eosinophils (%) (Auto) 0.1, Basophils (%) (Auto) 0.8, Neutrophils # (Auto) 6.4, Lymphocytes # (Auto) 1.4L, Monocytes # (Auto) 0.3, Eosinophils # (Auto) 0.0, Basophils # (Auto) 0.1, Nucleated Red Blood Cells % (auto) 0.0, Anion Gap 11, Glomerular Filtration Rate > 60.0, C alcium Level 9.4, Coronavirus (COVID-19)(PCR) NEGATIVE, Influenza Type A (RT- PCR) NEGATIVE, Influenza Type B (RT-PCR) NEGATIVE, Respiratory Syncytial Virus (PCR) NEGATIVE 01/22/21 07:41: Nucleated Red Blood Cells % (auto) 0.0 01/22/21 07:42: CBC/BMP Laboratory Tests 01/21/21 13:01 01/22/21 07:41 Discharge Medications No Active Prescriptions or Reported Meds Allergies Coded Allergies: amoxicillin (Verified Allergy, Unknown, UNKNOWN CHILDHOOD REACTION, 01/21/21) clavulanic acid (Verified Allergy, Unknown, UNKNOWN CHILDHOOD REACTION, 01/21/21) DAVID BAZZI MD Jan 22, 2021 09:20
[2021-01-22] MEDS ORDERED: CLEO150C PO (09:26)
[2021-01-22] MEDS ORDERED: CVS1CAP2 PO (09:26)
== END 2021-01-22 11:30 | disposition home or self-care (01) ==
LOC: M ED 11:06 → M SDC 13:48 → M MS5PR 13:49 → ENRESERV 17:45 → M MS5PR 23:49
PROVIDERS: ADMIT Internal Medicine; ATTEND Internal Medicine
DX: T63.441A Toxic effect of venom of bees, accidental (unintentional), initial encounter (principal); Y92.89 Other specified places as the place of occurrence of the external cause; Y93.9 Activity, unspecified; Y99.9 Unspecified external cause status; Z88.0 Allergy status to penicillin; Z88.1 Allergy status to other antibiotic agents; E66.9 Obesity, unspecified
CPT/HCPCS: 31535; 36415; 80048; 85025; 85027; 87631; 88304; 96360; 96361; 99284; J0131; J1100; J2250; J2405; J3010; Q9968

== ENCOUNTER 2021-12-28 09:41 | Emergency (ER) | payer OTHER ==
[~2021-12-28] VITALS: Ht 185.4 cm; Wt 122.7 kg
[~2021-12-28 09:41] MED LIST changes: +CLEO150C PO; +CVS1CAP2 PO
[2021-12-28 10:20] LABS: BASO % 0.6 % (0.0-1.0); EOS % 0.3 % (0.0-3.0); HEMATOCRIT 48.1 % (42.0-52.0); HEMOGLOBIN 16.6 g/dl (13.5-17.5); LYMPH # 1.7 10^3/uL (1.5-5.0); LYMPH % 24.4 % (24.0-44.0); MEAN CORPUSCULAR HEMOGLOBIN 29.6 pg (27.0-33.0); MEAN CORPUSCULAR HGB CONC 34.5 g/dl (32.0-36.5); MEAN CORPUSCULAR VOLUME 85.9 fl (80.0-96.0); MONO # 0.5 10^3/uL (0.0-0.8); MONO % 6.5 % (2.0-8.0); NEUTROPHILS # 4.8 10^3/uL (1.5-8.5); NEUTROPHILS % 67.9 % (36.0-66.0); PLATELET COUNT, AUTOMATED 167 10^3/uL (150-450); WHITE BLOOD COUNT 7.1 10^3/uL (4.0-10.0)
[2021-12-28 10:34] LABS: INR 0.99; PROTHROMBIN TIME 13.5 SECONDS (12.7-14.5)
[2021-12-28 10:35] LABS: PARTIAL THROMBOPLASTIN TIME 26.3 SECONDS (25.9-37.0)
[2021-12-28 10:57] LABS: CK-MB VALUE MASS < 1.0 NG/ML (<3.6); CPK CREATINE PHOSPHOKINASE 77 U/L (39-308)
[2021-12-28 11:30] LABS: BLOOD UREA NITROGEN 11 MG/DL (7-18); CALCIUM LEVEL 9.8 MG/DL (8.5-10.1); CARBON DIOXIDE LEVEL 24 mmol/L (20-29); CHLORIDE LEVEL 103 MEQ/L (98-107); CREATININE FOR GFR 1.02 MG/DL (0.70-1.30); GLOMERULAR FILTRATION RATE > 60.0 (>60); GLUCOSE, FASTING 96 MG/DL (70-100); POTASSIUM SERUM 3.8 MEQ/L (3.5-5.1); SODIUM LEVEL 138 MEQ/L (136-145)
[2021-12-28 11:31] LABS: ALBUMIN 4.5 GM/DL (3.2-5.2); ALT/SGPT 31 IU/L (0-32); BILIRUBIN,DIRECT 0.2 MG/DL (0.0-0.2); BILIRUBIN,TOTAL 0.5 MG/DL (0.2-1.0); NT-PRO BNP 35 PG/ML (<125); TOTAL PROTEIN 7.7 GM/DL (6.4-8.2)
[2021-12-28 12:09] LABS: CPK CREATINE PHOSPHOKINASE 71 U/L (39-308)
[2021-12-28 12:10] LABS: CK-MB VALUE MASS < 1.0 NG/ML (<3.6)
[2021-12-28 12:34] VITALS: BP 121/61
== END 2021-12-28 12:51 | disposition home or self-care (01) ==
LOC: M ED 09:41 → EDBD 09:41 → M ED 12:51
DX: R07.9 Chest pain, unspecified (principal); F17.200 Nicotine dependence, unspecified, uncomplicated; Z88.1 Allergy status to other antibiotic agents

== ENCOUNTER 2023-04-11 09:20 | Emergency (ER) | payer OTHER ==
[~2023-04-11] VITALS: Ht 185.4 cm; Wt 128.9 kg
[2023-04-11 09:21] VITALS: TEMP 97.5
[2023-04-11 11:55] LABS: BASO # 0.1 10^3/uL (0.0-0.2); BASO % 0.9 % (0.0-1.0); EOS % 0.2 % (0.0-3.0); HEMATOCRIT 50.9 % (42.0-52.0); HEMOGLOBIN 17.6 g/dl (13.5-17.5); LYMPH # 1.7 10^3/uL (1.5-5.0); MEAN CORPUSCULAR HEMOGLOBIN 29.8 pg (27.0-33.0); MEAN CORPUSCULAR HGB CONC 34.6 g/dl (32.0-36.5); MEAN CORPUSCULAR VOLUME 86.1 fl (80.0-96.0); MONO # 0.5 10^3/uL (0.0-0.8); MONO % 6.3 % (2.0-8.0); NEUTROPHILS # 5.8 10^3/uL (1.5-8.5); NEUTROPHILS % 71.4 % (36.0-66.0); PLATELET COUNT, AUTOMATED 200 10^3/uL (150-450); RED BLOOD COUNT 5.91 10^6/uL (4.30-6.10); WHITE BLOOD COUNT 8.1 10^3/uL (4.0-10.0)
[2023-04-11 12:18] LABS: CK-MB VALUE MASS < 1.0 NG/ML (<3.6)
[2023-04-11 12:20] LABS: BLOOD UREA NITROGEN 14 MG/DL (9-23); CALCIUM LEVEL 9.4 MG/DL (8.5-10.1); CARBON DIOXIDE LEVEL 27 MMOL/L (20-31); CHLORIDE LEVEL 106 MMOL/L (98-107); CREATININE FOR GFR 0.86 MG/DL (0.70-1.30); GLOMERULAR FILTRATION RATE > 60.0 (>60); GLUCOSE, FASTING 88 MG/DL (60-100); POTASSIUM SERUM 4.1 MMOL/L (3.5-5.1); SODIUM LEVEL 139 MMOL/L (136-145)
[2023-04-11 12:23] LABS: CPK CREATINE PHOSPHOKINASE 112 U/L (46-171); MB/CK RELATIVE INDEX 0.89 (< OR =4)
[2023-04-11 13:34] LABS: CK-MB VALUE MASS < 1.0 NG/ML (<3.6)
[2023-04-11 13:44] LABS: CPK CREATINE PHOSPHOKINASE 100 U/L (46-171)
[2023-04-11] MEDS ORDERED: HOLTER MONITOR XX (13:58)
[2023-04-11 14:01] VITALS: BP 128/62; O2SAT 98
== END 2023-04-11 14:07 | disposition home or self-care (01) ==
LOC: M ED 09:20
DX: R00.2 Palpitations (principal); F17.290 Nicotine dependence, other tobacco product, uncomplicated

== ENCOUNTER → 2023-04-12 | Outpatient (CLI) | payer OTHER ==
[~2023-04-12] MED LIST changes: +HOLTER MONITOR XX
== END ==
LOC: M RAD 15:24
PROVIDERS: ATTEND Physician Assistant Medical
DX: R00.2 Palpitations (principal)

== ENCOUNTER 2023-07-10 17:37 | Emergency (ER) | payer OTHER ==
[~2023-07-10] VITALS: Ht 185.4 cm; Wt 122.7 kg
[2023-07-10] MEDS: NS 500 ML IV ONE (17:45)
[2023-07-10] MEDS: BOOSTRIX VACCINE (TETANUS/DIPHTH/ACEL. PERTUSSIS) 0.5ML SYR IM.IMMUN ONE (17:45)
[2023-07-10 17:49] VITALS: TEMP 97.2
[2023-07-10] MEDS ORDERED: ISOVUE-370 76% 100ML VIAL As Ordered ONE (18:03)
[2023-07-10 18:24] LABS: BASO # 0.1 10^3/uL (0.0-0.2); BASO % 0.5 % (0.0-1.0); EOS % 0.2 % (0.0-3.0); HEMATOCRIT 47.5 % (42.0-52.0); HEMOGLOBIN 16.3 g/dl (13.5-17.5); LYMPH # 2.1 10^3/uL (1.5-5.0); LYMPH % 18.7 % (24.0-44.0); MEAN CORPUSCULAR HEMOGLOBIN 29.7 pg (27.0-33.0); MEAN CORPUSCULAR HGB CONC 34.3 g/dl (32.0-36.5); MEAN CORPUSCULAR VOLUME 86.7 fl (80.0-96.0); MONO # 0.6 10^3/uL (0.0-0.8); MONO % 5.4 % (2.0-8.0); NEUTROPHILS # 8.3 10^3/uL (1.5-8.5); NEUTROPHILS % 74.9 % (36.0-66.0); PLATELET COUNT, AUTOMATED 196 10^3/uL (150-450); RED BLOOD COUNT 5.48 10^6/uL (4.30-6.10)
[2023-07-10] MEDS: ONDANSETRON 4MG 2ML VIAL IV ONE (18:27)
[2023-07-10] MEDS: MORPHINE 4 MG/ML 1ML VIAL IV ONE (18:34)
[2023-07-10 18:37] LABS: INR 1.21; PARTIAL THROMBOPLASTIN TIME 26.1 SECONDS (24.8-34.2); PROTHROMBIN TIME 14.9 SECONDS (12.5-14.5)
[2023-07-10 18:50] LABS: CK-MB VALUE MASS 1.7 NG/ML (<3.6); LIPASE 28 U/L (12-53)
[2023-07-10 18:51] LABS: AMYLASE 36 U/L (30-118)
[2023-07-10 18:52] LABS: ALBUMIN 3.3 G/DL (3.2-5.2); ALKALINE PHOSPHATASE 60 U/L (46-116); ALT/SGPT 31 U/L (7.0-40); AST/SGOT 18 U/L (<34); BILIRUBIN,DIRECT 0.1 MG/DL (<0.4); BILIRUBIN,TOTAL 0.4 MG/DL (0.3-1.2); BLOOD UREA NITROGEN 11 MG/DL (9-23); CALCIUM LEVEL 6.4 MG/DL (8.5-10.1); CARBON DIOXIDE LEVEL 24 MMOL/L (20-31); CHLORIDE LEVEL 113 MMOL/L (98-107); CPK CREATINE PHOSPHOKINASE 221 U/L (46-171); CREATININE FOR GFR 0.79 MG/DL (0.70-1.30); GLOMERULAR FILTRATION RATE > 60.0 (>60); GLUCOSE, FASTING 89 MG/DL (60-100); MB/CK RELATIVE INDEX 0.76 (< OR =4); POTASSIUM SERUM 3.2 MMOL/L (3.5-5.1); SODIUM LEVEL 144 MMOL/L (136-145); TOTAL PROTEIN 5.8 G/DL (5.7-8.2)
[2023-07-10 19:08] LABS: RSV AMPLIFICATION NEGATIVE (NEGATIVE)
[2023-07-10 19:35] VITALS: BP 161/98
[2023-07-10 19:37] VITALS: O2SAT 98
[2023-07-10 19:44] LABS: APPEARANCE, URINE CLEAR (CLEAR); BACTERIA, URINE AUTO NEGATIVE (NEGATIVE); BILIRUBIN, URINE AUTO NEGATIVE (NEGATIVE); BLOOD, URINE BLOOD NEGATIVE (NEGATIVE); COLOR, URINE STRAW (YELLOW); GLUCOSE, URINE (UA) AUTO NEGATIVE (NEGATIVE); KETONE, URINE AUTO NEGATIVE (NEGATIVE); LEUKOCYTE ESTERASE, URINE AUTO NEGATIVE (NEGATIVE); MUCUS, URINE SMALL (NEGATIVE); NITRITE, URINE AUTO NEGATIVE (NEGATIVE); PROTEIN, URINE AUTO 1+ mg/dL (NEGATIVE); RBC, URINE AUTO 0 /HPF (0-3); SPECIFIC GRAVITY URINE AUTO 1.032 (1.002-1.035); SQUAMOUS EPITHELIAL CELL UR AU 0 /HPF (0-6); UROBILINOGEN, URINE AUTO 0.2 mg/dL (0.0-2.0); WBC, URINE AUTO 0 /HPF (0-3)
[2023-07-10 20:07] LABS: CK-MB VALUE MASS 2.1 NG/ML (<3.6)
[2023-07-10 20:08] LABS: MB/CK RELATIVE INDEX 0.77 (< OR =4)
[2023-07-10] MEDS: NEOSPORIN TOP OINT 15GM TOP STA (20:44)
[2023-07-10] MEDS ORDERED: HYDR-3713 PO (21:01)
[2023-07-10] MEDS ORDERED: CEPH500C PO (21:01)
[2023-07-10] MEDS: CEPHALEXIN 500 MG CAP PO ONE (22:06)
[2023-07-10] MEDS: POTASSIUM CHLORIDE 10MEQ SR TABLET PO ONE (22:06)
[2023-07-10] MEDS: ANEXSIA, NORCO 7.5MG/325MG TABLET(HYDROCODONE/APAP) PO ONE (22:07)
== END 2023-07-10 22:36 | disposition home or self-care (01) ==
LOC: EDBD 17:37 → M ED 17:37
DX: S50.812A Abrasion of left forearm, initial encounter (principal); S86.811A Strain of other muscle(s) and tendon(s) at lower leg level, right leg, initial encounter; S82.301A Unspecified fracture of lower end of right tibia, initial encounter for closed fracture; M22.2X1 Patellofemoral disorders, right knee; V29.408A Other motorcycle driver injured in collision with unspecified motor vehicles in traffic accident, initial encounter; Y92.410 Unspecified street and highway as the place of occurrence of the external cause; Y93.89 Activity, other specified; Y99.9 Unspecified external cause status; Z88.1 Allergy status to other antibiotic agents; Z79.899 Other long term (current) drug therapy; Z79.1 Long term (current) use of non-steroidal anti-inflammatories (NSAID); Z23 Encounter for immunization
CPT/HCPCS: 70450; 71045; 71260; 72125; 72128; 72131; 73060; 73080; 73090; 73560; 73590; 73610; 73630; 74177; 80048; 80076; 81001; 82150; 82550; 82553; 83605; 83690; 84484; 85025; 85610; 85730; 86850; 86900; 86901; 87631; 90471; 90715; 93005; 93041; 94760; 96361; 96374; 96375; 99291; J2405; Q9967

== ENCOUNTER → 2023-07-19 | Outpatient (CLI) | payer OTHER ==
[~2023-07-19] MED LIST changes: +CEPH500C PO; +HYDR-3713 PO
== END ==
LOC: M SOG 14:09
PROVIDERS: ATTEND Physician Assistant
DX: S82.391A Other fracture of lower end of right tibia, initial encounter for closed fracture (principal); W18.30XA Fall on same level, unspecified, initial encounter; Y92.009 Unspecified place in unspecified non-institutional (private) residence as the place of occurrence of the external cause

== ENCOUNTER → 2023-08-16 | Outpatient (CLI) | payer OTHER | LOC: M SOG 10:17 | PROVIDERS: ATTEND Physician Assistant | DX: S82.391A Other fracture of lower end of right tibia, initial encounter for closed fracture (principal); Y93.9 Activity, unspecified; Y92.9 Unspecified place or not applicable ==

== ENCOUNTER → 2023-08-31 | Outpatient (REF) | payer OTHER ==
[2023-08-31 17:29] LABS: HEMOGLOBIN A1c 4.8 % (4.0-6.0)
[2023-08-31 17:45] LABS: Trichomonas vaginalis (AMP) NOT DETECTED (NEGATIVE)
[2023-08-31 18:09] LABS: GC DNA AMPLIFICATION NEGATIVE (NEGATIVE)
[2023-08-31 18:29] LABS: HIV 1&2 SCREEN NEGATIVE (NEGATIVE)
[2023-08-31 18:36] LABS: HEPATITIS C VIRUS ABY INDEX < 0.02 INDEX (<0.8)
[2023-08-31 18:39] LABS: ALBUMIN 4.2 G/DL (3.2-5.2); ALKALINE PHOSPHATASE 85 U/L (46-116); ALT/SGPT 34 U/L (7.0-40); AST/SGOT 19 U/L (<34); BILIRUBIN,TOTAL 0.4 MG/DL (0.3-1.2); BLOOD UREA NITROGEN 12 MG/DL (9-23); CALCIUM LEVEL 8.8 MG/DL (8.5-10.1); CARBON DIOXIDE LEVEL 28 MMOL/L (20-31); CHLORIDE LEVEL 102 MMOL/L (98-107); CHOLESTEROL LEVEL 208 MG/DL (<200); CHOLESTEROL RISK RATIO 4.01 (<5); CREATININE FOR GFR 0.92 MG/DL (0.70-1.30); GLOMERULAR FILTRATION RATE > 60.0 (>60); GLUCOSE, FASTING 128 MG/DL (60-100); HDL CHOLESTEROL 51.8 MG/DL (>40); LDL CHOLESTEROL 113.8 MG/DL (<100); NON-HDL-C 156.2 MG/DL; POTASSIUM SERUM 4.4 MMOL/L (3.5-5.1); SODIUM LEVEL 138 MMOL/L (136-145); THYROID STIMULATING HORMONE 1.495 uIU/ML (0.55-4.78); TOTAL 25(OH) VITAMIN D 11.9 NG/ML (20.0-100.0); TOTAL PROTEIN 7.6 G/DL (5.7-8.2); TRIGLYCERIDES LEVEL 212 MG/DL (<150)
[2023-08-31 18:56] LABS: CREATININE, URINE 268.1 MG/DL; MAU/CREAT RATIO 37.6 MCG/MG (0.0-30.0)
== END ==
LOC: M LAB REF 16:14
PROVIDERS: ATTEND Physician Assistant
DX: R03.0 Elevated blood-pressure reading, without diagnosis of hypertension (principal); Z11.9 Encounter for screening for infectious and parasitic diseases, unspecified; E66.9 Obesity, unspecified; E55.9 Vitamin D deficiency, unspecified

== ENCOUNTER 2023-10-19 12:33 | Emergency (ER) | payer OTHER ==
[~2023-10-19] VITALS: Ht 185.4 cm; Wt 136.0 kg
[2023-10-19 13:19] LABS: BASO # 0.1 10^3/uL (0.0-0.2); BASO % 0.7 % (0.0-1.0); EOS % 0.1 % (0.0-3.0); HEMATOCRIT 45.8 % (42.0-52.0); HEMOGLOBIN 15.8 g/dl (13.5-17.5); LYMPH # 2.4 10^3/uL (1.5-5.0); LYMPH % 31.9 % (24.0-44.0); MEAN CORPUSCULAR HEMOGLOBIN 29.8 pg (27.0-33.0); MEAN CORPUSCULAR HGB CONC 34.5 g/dl (32.0-36.5); MEAN CORPUSCULAR VOLUME 86.3 fl (80.0-96.0); MONO # 0.5 10^3/uL (0.0-0.8); MONO % 6.8 % (2.0-8.0); NEUTROPHILS # 4.5 10^3/uL (1.5-8.5); NEUTROPHILS % 60.2 % (36.0-66.0); PLATELET COUNT, AUTOMATED 182 10^3/uL (150-450); RED BLOOD COUNT 5.31 10^6/uL (4.30-6.10); WHITE BLOOD COUNT 7.4 10^3/uL (4.0-10.0)
[2023-10-19] MEDS: KETOROLAC 30 MG/ML 1ML VIAL IV ONE (13:20)
[2023-10-19 13:39] LABS: CK-MB VALUE MASS < 1.0 NG/ML (<3.6)
[2023-10-19 13:40] LABS: LIPASE 35 U/L (12-53)
[2023-10-19 13:42] LABS: ALBUMIN 4.7 G/DL (3.2-5.2); ALKALINE PHOSPHATASE 79 U/L (46-116); ALT/SGPT 57 U/L (7.0-40); AST/SGOT 25 U/L (<34); BILIRUBIN,DIRECT 0.2 MG/DL (<0.4); BILIRUBIN,TOTAL 0.6 MG/DL (0.3-1.2); BLOOD UREA NITROGEN 14 MG/DL (9-23); CALCIUM LEVEL 9.6 MG/DL (8.5-10.1); CARBON DIOXIDE LEVEL 22 MMOL/L (20-31); CHLORIDE LEVEL 107 MMOL/L (98-107); CREATININE FOR GFR 0.93 MG/DL (0.70-1.30); GLOMERULAR FILTRATION RATE > 60.0 (>60); GLUCOSE, FASTING 95 MG/DL (60-100); POTASSIUM SERUM 3.2 MMOL/L (3.5-5.1); SODIUM LEVEL 142 MMOL/L (136-145); TOTAL PROTEIN 7.4 G/DL (5.7-8.2)
[2023-10-19 13:44] LABS: FREE T4 1.13 NG/DL (0.89-1.76); THYROID STIMULATING HORMONE 2.029 uIU/ML (0.55-4.78)
[2023-10-19 13:45] LABS: CPK CREATINE PHOSPHOKINASE 141 U/L (46-171)
[2023-10-19] MEDS ORDERED: ISOVUE-370 76% 100ML VIAL As Ordered ONE (14:00)
[2023-10-19 14:14] LABS: D-DIMER QUANT < 0.27 ug/mL (<0.5); INR 1.12; PROTHROMBIN TIME 14.1 SECONDS (12.5-14.5)
[2023-10-19 14:30] LABS: CK-MB VALUE MASS < 1.0 NG/ML (<3.6)
[2023-10-19 14:31] LABS: CPK CREATINE PHOSPHOKINASE 133 U/L (46-171); MB/CK RELATIVE INDEX 0.75 (< OR =4)
[2023-10-19] MEDS: NS 1,000 ML IV ONE (14:35)
[2023-10-19] MEDS: LORazepam 2 MG/ML 1ML VIAL IV STA (14:38)
[2023-10-19] MEDS ORDERED: KETO10TAB PO (16:37)
[2023-10-19 17:15] VITALS: BP 132/69; TEMP 97.5; O2SAT 96
== END 2023-10-19 17:30 | disposition home or self-care (01) ==
LOC: M ED 12:33
DX: R07.9 Chest pain, unspecified (principal); M94.0 Chondrocostal junction syndrome [Tietze]; F41.9 Anxiety disorder, unspecified; R00.0 Tachycardia, unspecified; F10.10 Alcohol abuse, uncomplicated; F17.200 Nicotine dependence, unspecified, uncomplicated; Z88.1 Allergy status to other antibiotic agents; Z79.2 Long term (current) use of antibiotics; Z79.899 Other long term (current) drug therapy; Z79.1 Long term (current) use of non-steroidal anti-inflammatories (NSAID)
CPT/HCPCS: 71045; 71275; 80048; 80076; 82550; 82553; 83690; 84439; 84443; 84484; 85025; 85379; 85610; 93005; 93041; 94760; 96374; 99284; J2060; Q9967

== ENCOUNTER 2023-10-29 07:08 | Emergency (ER) | payer OTHER ==
[~2023-10-29] VITALS: Ht 185.4 cm; Wt 134.8 kg
[~2023-10-29 07:08] MED LIST changes: +KETO10TAB PO
[2023-10-29] MEDS ORDERED: KETO10TAB PO (07:20)
[2023-10-29] MEDS ORDERED: NAPR-885 (07:20)
[2023-10-29 07:46] LABS: BASO # 0.1 10^3/uL (0.0-0.2); BASO % 0.8 % (0.0-1.0); EOS % 0.6 % (0.0-3.0); HEMATOCRIT 45.1 % (42.0-52.0); HEMOGLOBIN 15.7 g/dl (13.5-17.5); LYMPH # 1.9 10^3/uL (1.5-5.0); LYMPH % 30.4 % (24.0-44.0); MEAN CORPUSCULAR HEMOGLOBIN 30.3 pg (27.0-33.0); MEAN CORPUSCULAR HGB CONC 34.8 g/dl (32.0-36.5); MEAN CORPUSCULAR VOLUME 87.1 fl (80.0-96.0); MONO # 0.5 10^3/uL (0.0-0.8); MONO % 8.2 % (2.0-8.0); NEUTROPHILS # 3.8 10^3/uL (1.5-8.5); PLATELET COUNT, AUTOMATED 173 10^3/uL (150-450); RED BLOOD COUNT 5.18 10^6/uL (4.30-6.10); WHITE BLOOD COUNT 6.3 10^3/uL (4.0-10.0)
[2023-10-29 07:58] LABS: INR 1.13; PROTHROMBIN TIME 14.1 SECONDS (12.5-14.5)
[2023-10-29 08:13] LABS: LIPASE 39 U/L (12-53)
[2023-10-29 08:14] LABS: CK-MB VALUE MASS < 1.0 NG/ML (<3.6)
[2023-10-29 08:16] LABS: ALBUMIN 4.2 G/DL (3.2-5.2); ALKALINE PHOSPHATASE 78 U/L (46-116); ALT/SGPT 38 U/L (7.0-40); AST/SGOT 18 U/L (<34); BILIRUBIN,DIRECT 0.2 MG/DL (<0.4); BILIRUBIN,TOTAL 0.6 MG/DL (0.3-1.2); BLOOD UREA NITROGEN 11 MG/DL (9-23); CALCIUM LEVEL 8.9 MG/DL (8.5-10.1); CARBON DIOXIDE LEVEL 25 MMOL/L (20-31); CHLORIDE LEVEL 109 MMOL/L (98-107); CPK CREATINE PHOSPHOKINASE 155 U/L (46-171); CREATININE FOR GFR 0.88 MG/DL (0.70-1.30); GLOMERULAR FILTRATION RATE > 60.0 (>60); GLUCOSE, FASTING 96 MG/DL (60-100); MB/CK RELATIVE INDEX 0.64 (< OR =4); POTASSIUM SERUM 3.7 MMOL/L (3.5-5.1); SODIUM LEVEL 141 MMOL/L (136-145)
[2023-10-29 10:55] LABS: CK-MB VALUE MASS 1.1 NG/ML (<3.6)
[2023-10-29 10:56] LABS: MB/CK RELATIVE INDEX 0.75 (< OR =4)
[2023-10-29 11:27] VITALS: BP 128/61; TEMP 97.3; O2SAT 99
== END 2023-10-29 11:33 | disposition home or self-care (01) ==
LOC: M ED 07:08
DX: R07.89 Other chest pain (principal); X50.0XXA Overexertion from strenuous movement or load, initial encounter; F17.200 Nicotine dependence, unspecified, uncomplicated; Z88.1 Allergy status to other antibiotic agents; Z79.1 Long term (current) use of non-steroidal anti-inflammatories (NSAID); Z79.899 Other long term (current) drug therapy; Y99.9 Unspecified external cause status

== ENCOUNTER 2024-11-11 08:10 | Emergency (ER) | payer OTHER ==
[~2024-11-11 08:10] MED LIST changes: -CYCL5TAB PO; +CYCL5TAB4 PO; +NAPR-885
[2024-11-11 08:38] LABS: BASO # 0.1 10^3/uL (0.0-0.2); BASO % 0.8 % (0.0-1.0); EOS # 0.1 10^3/uL (0.0-0.5); EOS % 0.9 % (0.0-3.0); LYMPH # 2.4 10^3/uL (1.5-5.0); LYMPH % 31.5 % (24.0-44.0); MONO # 0.6 10^3/uL (0.0-0.8); MONO % 8.4 % (2.0-8.0); NEUTROPHILS # 4.4 10^3/uL (1.5-8.5); NEUTROPHILS % 58.0 % (36.0-66.0); PLATELET COUNT, AUTOMATED 168 10^3/uL (150-450)
[2024-11-11 09:05] LABS: CK-MB VALUE MASS 1.0 NG/ML (<3.6)
[2024-11-11 09:08] LABS: ALT/SGPT 32 U/L (7.0-40); AST/SGOT 22 U/L (<34); CALCIUM LEVEL 9.0 MG/DL (8.5-10.1); CARBON DIOXIDE LEVEL 23 MMOL/L (20-31); CHLORIDE LEVEL 106 MMOL/L (98-107); CREATININE FOR GFR 0.95 MG/DL (0.70-1.30); GLOMERULAR FILTRATION RATE > 90.0 (>60); POTASSIUM SERUM 4.0 MMOL/L (3.5-5.1); SODIUM LEVEL 142 MMOL/L (136-145)
[2024-11-11 09:09] LABS: FREE T4 1.13 NG/DL (0.89-1.76)
[2024-11-11 09:19] LABS: CPK CREATINE PHOSPHOKINASE 100 U/L (46-171); MB/CK RELATIVE INDEX 1.00 (< OR =4)
[2024-11-11 09:26] VITALS: BP 139/85; TEMP 97.8; O2SAT 100
[2024-11-11 10:08] LABS: CK-MB VALUE MASS 1.0 NG/ML (<3.6)
[2024-11-11 10:11] LABS: CPK CREATINE PHOSPHOKINASE 96 U/L (46-171); MB/CK RELATIVE INDEX 1.04 (< OR =4)
== END 2024-11-11 12:01 | disposition home or self-care (01) ==
LOC: M ED 08:10
DX: R07.9 Chest pain, unspecified (principal); Z88.1 Allergy status to other antibiotic agents